=== PATIENT | female | born 1980 | race Two or more races ===

== ENCOUNTER 2024-01-09 16:40 | Emergency (ER) | payer SELFPAY ==
[2024-01-09 16:41] VITALS: BP 150/88
--- NOTE | 2024-01-09 17:16 | ED.GENMED ---
History of Present Illness
General
Chief Complaint: Fainting/Passed Out
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
Exam Limitations: none
Time Seen by Provider: 01/09/24 17:03
Travel History
Have you had any contact with someone who has COVID-19?: No
Do you have any symptoms of coronavirus? Fever > 100 degrees, chills, cough, shortness of breath, sore throat, loss of taste or smell, muscle aches, or headache?: No
History of Present Illness
History of Present Illness:
Patient was apparently in a very emotional conversation. After the conversation she became lightheaded dizzy and passed out hitting the back of her head and left shoulder. She had no preceding chest pain shortness of breath palpitations or other
complaints. Current symptoms are only related to the trauma from the fall and include left shoulder pain and posterior head pain.
Past History
Past History
ED Past Medical History: None and Other (Diabetes insipidus)
ED Past Surgical History:
Review of Systems
Review of Systems
All Other Systems: Not applicable
Respiratory: Denies trouble breathing
Cardiac: Denies chest pain or palpitations
Phy Exam
Physical Exam
Physical Exam:
TRAUMA EXAM:
VITAL SIGNS: Vital signs reviewed, cooperative
DISTRESS: No active disease
EYES: Pupils reactive, no orbital trauma
NOSE: No deformity or epistaxis
FACE AND SCALP: No facial trauma, external canals no blood. Tenderness posterior occiput occiput without hematoma or abrasion
NECK: Supple nontender
BACK: Back nontender, pelvis stable to compression
RESPIRATORY: No distress, breath sounds normal, no tender chest wall
CARDIAC: No murmur, pulses equal and strong
ABDOMEN: Soft nontender bowel sounds normal
SKIN: Skin intact no bleeding, color normal
EXTREMITIES: Tender left shoulder. AC joint normal. Clavicle normal. Distal humerus elbow and wrist normal. All other extremities negative.
NEUROLOGICAL: Alert, oriented, no motor deficits
PSYCH: Mood affect normal
Course
Orders/Labs/Results
Orders:
Orders
01/09/24 16:46
Electrocardiogram (*1) Urgent
Reason for Study: Chest Pain
EKG- Treatment ONCE
01/09/24 17:21
Cardiac Monitoring- Treatment ONCE
IV Insert/Care/Rem.- Treatment PRN
0.9% Sodium Chloride 500 ml [Nss] 500 ml IV BOLUS
Test Result ONCE
Shoulder, Left 2 View CR [CR Shoulder - Left Min 2 View*] Urgent
Comment:
Reason For Exam: trauma
01/09/24 17:22
CT Cervical Spine W/o Iv Contr Urgent
Comment:
Reason For Exam: trauma
CT Head W/o Iv Contrast Urgent
Comment:
Reason For Exam: trauma
Cardiac Monitoring- Treatment ONCE
01/09/24 17:39
Basic Metabolic Panel Urgent
Complete Blood Count/With Diff Urgent
HCG, Serum Qualitative Screen Urgent
01/09/24 17:45
Acetaminophen [Tylenol] 650 mg PO NOW STA
01/09/24 19:35
Sling Left-Treatment ONCE
Ibuprofen [Motrin] 600 mg PO NOW STA
Abnormal Lab Results
01/09/24
17:39
MCV 77.6 L fL
(81.0-99.0)
MCH 25.1 L pg
(27.0-31.0)
MCHC 32.4 L g/dL
(33.0-37.0)
MPV 10.5 H fL
(7.4-10.4)
Creatinine 0.3 L mg/dL
(0.6-1.0)
Glucose 300 H mg/dl
(70-99)
01/09/24 17:39
01/09/24 17:39
Vital Signs
Initial and Last Documented VS:
Initial Vital Signs
Temp Pulse Resp BP Pulse Ox
98.1 F 90 20 150/88 98
01/09/24 16:41 01/09/24 16:41 01/09/24 16:41 01/09/24 16:41 01/09/24 16:41
Last Documented Vital Signs
Temp Pulse Resp BP Pulse Ox
98.1 F 76 17 150/88 96
01/09/24 16:41 01/09/24 18:00 01/09/24 18:00 01/09/24 16:41 01/09/24 17:30
MDM/Problems Addressed
Differential Diagnosis Includes:
Syncope described as very vasovagal secondary to emotional stress. No risk factors for more serious etiology. No EKG changes of QT interval or Brugada syndrome. Trauma workup including head CT cervical spine CT and shoulder x-ray. Chest and
abdomen are benign. Clinically stable at this time
*Pulse Oximetry
Patient hypoxic: no
*EKG
Interpreted by ED Provider?: Yes
Interpretation: normal
Comparison EKG: no comparison EKG present
Heart Rate: 79
Rate: normal
Rhythm: sinus
[place]: normal axis
Interval: normal interval
QRS Pattern: normal QRS
Ischemia: no ischemia
*Critical Care Note
Total Time (30-74mins, 75-104mins- exclusive of procedures): Not Applicable
Update Note
Update Note:
Medically stable and nontoxic. Syncope very likely secondary to a stressful situation.
ED Attending Note
-
Portions of this chart may have been created with voice recognition software.� Occasional wrong word or��sound alike� substitutions may have occurred due to the inherent limitations of voice recognition software.
Discharge Plan
Departure
Patient Disposition: Home (Routine Discharge)
Date of Disposition: 01/09/24
Time of Disposition: 19:51
Patient with high blood pressure during this ER visit?: Yes
Discharge Problem:
Syncope, Head injury, Shoulder contusion, Hyperglycemia
Instructions: High Blood Sugar, Adult (DC), Head Injury in Adults (DC), Contusion (DC), Syncope (Fainting) (DC), BLOOD PRESSURE
Referrals:
[facility] [Outside]
NONE,* [Family Provider] -
David Bellamy MD [Active] - Follow up in 5-7 days
Interventions
Interventions:
*Risk Screen - Suicide Last Done: 01/09/24 16:41
*General Assessment Last Done: 01/09/24 16:41
*Neglect/Abuse Screening Last Done: 01/09/24 16:41
ED- Fall Risk Assessment Last Done: 01/09/24 17:35
*Nursing Disposition Last Done: 01/09/24 20:20
ED- Cardiac Assessment Last Done: 01/09/24 17:35
ED-Musculoskeletal Assessment Last Done: 01/09/24 17:35
ED- Neurological Assessment Last Done: 01/09/24 17:35
ED-Skin Assessment Last Done: 01/09/24 17:35
[2024-01-09] MEDS: TYLENOL 650 MG PO (17:45)
[2024-01-09 17:49] LABS: % Basophils 0.4 % (0-2); % Eosinophils 0.7 % (0-6); % Immature Granulocytes 0.3 % (0-0.5); % Lymphocytes 36.1 % (20.5-51.1); % Monocytes 4.7 % (1.7-9.3); % Neutrophils 57.8 % (42.2-75.2); Absolute Eosinophils 0.1 10^3/uL (0-0.7); Absolute Lymphocytes 2.6 10^3/uL (1.2-3.4); Absolute Monocytes 0.3 10^3/uL (0.1-0.6); Absolute Neutrophils 4.2 10^3/uL (1.4-6.5); Hematocrit 39.5 % (37.0-47.0); Hemoglobin 12.8 g/dL (12.0-16.0); Mean Corp Hgb Conc. 32.4 g/dL (33.0-37.0); Mean Corpuscular Hgb 25.1 pg (27.0-31.0); Mean Corpuscular Volume 77.6 fL (81.0-99.0); Mean Platelet Volume 10.5 fL (7.4-10.4); Nucleated Red Blood Cells % 0 %; Platelet Count 248 10^3/uL (130-400); Red Blood Cell Count 5.09 10^6/uL (4.20-5.40); White Blood Cell Count 7.3 10^3/uL (4.8-10.8)
[2024-01-09] MEDS: NSS 500 IV (17:50)
[2024-01-09 18:07] LABS: HCG, Serum Qualitative Screen Negative
[2024-01-09 18:10] LABS: Blood Urea Nitrogen 14 mg/dl (7-17); Calcium 9.3 mg/dl (8.4-10.2); Carbon Dioxide 24 mmol/L (22-30); Chloride 101 mmol/L (98-107); Glucose 300 mg/dl (70-99); Sodium 135 mmol/L (135-145); eGFR > 60.00
[2024-01-09] MEDS: MOTRIN 600 MG PO (20:02)
== END 2024-01-09 20:25 | disposition home or self-care (01) ==
LOC: EMR 16:40
PROVIDERS: EMERGENCY PHYSICIAN Emergency Medicine
DX: R55 Syncope and collapse (principal); S09.90XA Unspecified injury of head, initial encounter; S40.012A Contusion of left shoulder, initial encounter; W19.XXXA Unspecified fall, initial encounter; R03.0 Elevated blood-pressure reading, without diagnosis of hypertension; R73.9 Hyperglycemia, unspecified; E23.2 Diabetes insipidus
CPT/HCPCS: 99285; 96360; 96361; 70450; 72125; 73030; 80048; 84703; 85025; 93005